=== PATIENT | female | born 1955 | race Caucasian/White ===

== ENCOUNTER → 2019-12-06 14:47 | Outpatient (CLI) | payer MEDICARE, SELFPAY ==
--- NOTE | ~2019-12-06 | MM_ITS ---
EXAMINATION: MM screening [facility] BI w nisreen HISTORY: Screening mammogram TECHNIQUE: Craniocaudal and mediolateral oblique 3-D tomosynthesis images were obtained and synthetic 2-D images were generated. CAD analysis was submitted and interpreted. COMPARISON: 11/10/2018, 11/10/2017, 11/02/2017, 11/11/2016, 10/06/2016, 10/01/2015 BREAST PARENCHYMAL COMPOSITION: The breasts are heterogeneously dense, which may obscure small masses . FINDINGS: Scattered benign-appearing calcifications are present. There is no evidence of suspicious m ass, calcification, or architectural distortion to suggest malignancy in either breast. There has bee n no suspicious interval change. IMPRESSION: 1. No mammographic evidence of malignancy. 2. Recommend routine screening mammography in one year. BI-RADS Category 2: Benign finding(s). Reviewed, dictated and finalized at location A.
== END ==
PROVIDERS: Visit Provider Obstetrics & Gynecology Gynecology
DX: Z12.31 Encounter for screening mammogram for malignant neoplasm of breast (principal)
CPT/HCPCS: 77063; 77067

== ENCOUNTER → 2020-12-14 12:35 | Outpatient (CLI) | payer MEDICARE, SELFPAY ==
--- NOTE | ~2020-12-14 | MM_ITS ---
EXAMINATION: MM screening [facility] BI w nisreen HISTORY: Screening TECHNIQUE: Craniocaudal and mediolateral oblique 3-D tomosynthesis images were obtained and synthetic 2-D images were generated. CAD analysis was submitted and interpreted. COMPARISON: Comparison to multiple prior studies sequentially, with oldest reviewed study dated 10/06. BREAST PARENCHYMAL COMPOSITION: The breasts are heterogenously dense, which may obscure small masses. FINDINGS: There is no evidence of suspicious mass, calcification, or architectural distortion to sugg est malignancy in either breast. There has been no suspicious interval change. IMPRESSION: 1. No mammographic evidence of malignancy. 2. Recommend routine screening mammography in one year. BI-RADS Category 1: Negative Reviewed, dictated and finalized at location A.
== END ==
PROVIDERS: PCP Family Medicine Sports Medicine; Visit Provider Obstetrics & Gynecology Gynecology
DX: Z12.31 Encounter for screening mammogram for malignant neoplasm of breast (principal)
CPT/HCPCS: 77063; 77067

== ENCOUNTER → 2022-02-12 12:17 | Outpatient (CLI) | payer MEDICARE, SELFPAY ==
--- NOTE | ~2022-02-12 | MM_ITS ---
EXAMINATION: MM screening [facility] BI w nisreen HISTORY: Screening mammogram TECHNIQUE: Craniocaudal and mediolateral oblique 3-D tomosynthesis images were obtained and synthetic 2-D images were generated. CAD analysis was submitted and interpreted. COMPARISON: 12/14/2020, 12/06/2019, 11/10/2018 BREAST PARENCHYMAL COMPOSITION: The breasts are extremely dense, which lowers the sensitivity of mamm ography. FINDINGS: Scattered benign-appearing calcifications are present. There is no suspicious mass, calcifi cation, or architectural distortion to suggest malignancy in either breast. There has been no suspici ous interval change. IMPRESSION: 1. No mammographic evidence of malignancy. 2. Recommend routine screening mammography in one year. BI-RADS Category 2: Benign finding(s). Reviewed, dictated and finalized at location A.
== END ==
PROVIDERS: PCP Family Medicine Sports Medicine; Visit Provider Obstetrics & Gynecology Gynecology
DX: Z12.31 Encounter for screening mammogram for malignant neoplasm of breast (principal)
CPT/HCPCS: 77063; 77067

== ENCOUNTER 2022-03-07 10:44 | Outpatient (CLI) | payer MEDICARE, SELFPAY ==
--- NOTE | ~2022-03-07 | MR_ITS ---
MR breast BI wo/w con 03/07/2022 12:06 CDT INDICATION: Extremely dense breasts. TECHNIQUE: MRI of the breasts perform using standard protocol pre-and post IV contrast with the follo wing sequences: Axial T2 STIR, axial T1, axial vibrant T1 with fat suppression precontrast and multip hasic postcontrast. COMPARISON: Mammogram dated 02/12/2022 FINDINGS: There are no abnormalities on the precontrast sequences. There is minimal background parenc hymal enhancement. There are small foci of nonmass-like enhancement in the right breast, largest in t he lower outer quadrant at 6:00, 4.9 cm from the nipple measuring 4 x 2 x 3 mm. No evidence of signal abnormalities in the axillary or internal mammary node distributions. LEFT BREAST: No signal abnormalities on precontrast sequences. There is minimal background parenchym al enhancement. There is a single foci of nonmass-like enhancement in the left breast measuring appro ximately 2 mm. No evidence of signal abnormalities in the axillary or internal mammary node distribut ions.] IMPRESSION: 1: Bilateral small foci of nonmass-like enhancement, largest in the lower outer quadrant of the right breast measuring 4 mm. These are likely benign. Recommend correlation with complete bilateral breast ultrasound. BI-RADS CATEGORY 0 - INCOMPLETE STUDY, NEED ADDITIONAL IMAGING EVALUATION. Reviewed, dictated and finalized at location A. IMPRESSION: 1: Bilateral small foci of nonmass-like enhancement, largest in the lower outer quadrant of the right breast measuring 4 mm. These are likely benign. Recommen d correlation with complete bilateral breast ultrasound. BI-RADS CATEGORY 0 - INCOMPLETE STUDY, NEED ADDITIONAL IMAGING EVALUATION.
== END 2022-03-07 10:45 | disposition home or self-care (01) ==
LOC: ANHIMG 10:46
PROVIDERS: PCP Family Medicine Sports Medicine; Visit Provider Obstetrics & Gynecology Gynecology
DX: R92.2 Inconclusive mammogram (principal)
CPT/HCPCS: 77049; A9577; C8908

== ENCOUNTER 2022-03-12 12:47 | Outpatient (CLI) | payer MEDICARE, SELFPAY ==
--- NOTE | ~2022-03-12 | US_ITS ---
US breast BI complete INDICATION: Ultrasound recommended on recent MRI examination. TECHNIQUE: Dedicated bilateral complete breast ultrasound including all 4 quadrants in the subareolar locations. COMPARISON: MRI dated 03/07/2022 and mammogram dated 02/12/2022 FINDINGS: The breasts are composed of normal heterogeneous echotexture without focal solid or cystic mass. There are mildly enlarged left axillary lymph nodes, likely reactive. No discrete mass identifi ed in either breast to correspond to the area of nonmass-like enhancement seen on MRI examination. IMPRESSION: 1: No sonographic evidence for malignancy in either breast. Mildly enlarged left axillary lymph nodes , likely reactive. Six-month follow-up MRI of the breasts recommended. BI-RADS CATEGORY 3-PROBABLY BENIGN FINDING Reviewed, dictated and finalized at location A. IMPRESSION: 1: No sonographic evidence for malignancy in either breast. Mildly enlarged lef t axillary lymph nodes, likely reactive. Six-month follow-up MRI of the breasts recommended. BI-RADS CATEGORY 3-PROBABLY BENIGN FINDING
== END 2022-03-12 12:48 | disposition home or self-care (01) ==
PROVIDERS: PCP Family Medicine Sports Medicine; Visit Provider Obstetrics & Gynecology Gynecology
DX: R92.8 Other abnormal and inconclusive findings on diagnostic imaging of breast (principal)
CPT/HCPCS: 76641

== ENCOUNTER 2022-09-09 09:37 | Outpatient (CLI) | payer MEDICARE, SELFPAY ==
--- NOTE | ~2022-09-09 | MR_ITS ---
EXAMINATION: MR breast BI wo/w con INDICATION: Six-month follow-up for probably benign bilateral breast findings TECHNIQUE: Axial VIBRANT pre and dynamic post contrast, Sagittal VIBRANT post contrast, Axial T2 STIR ASSET COMPARISON: 03/07/2022 CONTRAST: Multihance, 10 cc BREAST COMPOSITION: Heterogeneous fibroglandular tissue FINDINGS: RIGHT BREAST: There is minimal background parenchymal enhancement. There is a stable 6 mm mass in the posterior third of the lower right breast at the 6:00 location 5 cm from the nipple. There has been no suspicious interval change. Additional small foci of enhancement in the breast are also unchanged. LEFT BREAST: There is minimal background parenchymal enhancement. There are small foci of stable enha ncement in the left breast. No suspicious mass is identified. IMPRESSION: 1. Stable, probably benign right breast mass without mammographic or sonographic correlate. Follow-up MRI in six months is recommended. BI-RADS category 3, probably benign findings. Reviewed, dictated and finalized at location A. IMPRESSION: 1. Stable, probably benign right breast mass without mammographic or sonographi c correlate. Follow-up MRI in six months is recommended. BI-RADS category 3, probably benign findings.
== END 2022-09-09 09:38 | disposition home or self-care (01) ==
PROVIDERS: PCP Family Medicine Sports Medicine; Visit Provider Obstetrics & Gynecology Gynecology
DX: R92.8 Other abnormal and inconclusive findings on diagnostic imaging of breast (principal)
CPT/HCPCS: 77049; A9577; C8908

== ENCOUNTER 2023-03-09 09:32 | Outpatient (CLI) | payer MEDICARE, SELFPAY ==
--- NOTE | ~2023-03-09 | MR_ITS ---
MR breast BI wo/w con 03/10/2023 08:14 CDT INDICATION: Dense breasts. Previous foci of enhancement. TECHNIQUE: MRI of the breasts perform using standard protocol pre-and post IV contrast with the follo wing sequences: Axial T2 STIR, axial T1, axial vibrant T1 with fat suppression precontrast and multip hasic postcontrast. 10 cc MultiHance administered intravenously. COMPARISON: Comparison to multiple prior studies sequentially, with oldest reviewed study dated 12/14. FINDINGS: There are no abnormalities on the precontrast sequences. There is minimal background parenc hymal enhancement. No enhancing lesions following contrast administration. No areas of enhancement meeting threshold criteria on CAD analysis. No evidence of signal abnormalities in the axillary or i nternal mammary node distributions. LEFT BREAST: No signal abnormalities on precontrast sequences. There is minimal background parenchym al enhancement. There is a stable enhancing 6 mm Mass central aspect of the left breast with rapid washout enhancement. This is unchanged dating back to 03/07/2022 MRI allowing for differences of technique. No evidence of signal abnormalities in the a xillary or internal mammary node distributions.] IMPRESSION: 1: Right breast: Negative. No evidence of malignancy. BI-RADS category 1. Recommend annual mammo graphy follow-up. 2: Left breast: Stable 6 mm enhancing mass central aspect of the left breast. Follow-up diagnostic b ilateral mammogram and complete left breast ultrasound recommended. BI-RADS Category 3. BI-RADS CATEGORY 0 - INCOMPLETE STUDY, NEED ADDITIONAL IMAGING EVALUATION. Reviewed, dictated and finalized at location A. IMPRESSION: 1: Right breast: Negative. No evidence of malignancy. BI-RADS category 1. Recommend annual mammography follow-up. 2: Left breast: Stable 6 mm enhancing mass central aspect of the left breast. Follow-up diagnostic bilateral mammogram and complete left breast ultrasound re commended. BI-RADS Category 3. BI-RADS CATEGORY 0 - INCOMPLETE STUDY, NEED ADDITIONAL IMAGING EVALUATION.
== END 2023-03-09 09:33 | disposition home or self-care (01) ==
PROVIDERS: PCP Family Medicine Sports Medicine; Visit Provider Obstetrics & Gynecology Gynecology
DX: R92.8 Other abnormal and inconclusive findings on diagnostic imaging of breast (principal)
CPT/HCPCS: 77049; A9577; C8908

== ENCOUNTER → 2023-04-14 07:46 | Outpatient (CLI) | payer MEDICARE, SELFPAY ==
--- NOTE | ~2023-04-14 | MMUS_ITS ---
EXAMINATION: MM diagnostic [facility] BI w nisreen, US breast BI complete HISTORY: 6 mm enhancing central left breast mass reported on 03/09/2023 MRI breast examination TECHNIQUE: Full field and spot ML, MLO and CC 3-D tomosynthesis images of both breasts were performed and synthetic 2-D images were generated. CAD analysis was submitted and interpreted. High resolution complete bilateral breast ultrasound examination including all 4 quadrants and subareolar areas was performed. COMPARISON: 03/09/2023 MRI breast examination 09/09/2022 MRI breast examination 03/12/2020 through the lateral complete breast ultrasound examination 03/07/2022 MRI breast examination 02/12/2022 bilateral screening mammogram 12/14/2020 bilateral screening mammogram BREAST PARENCHYMAL COMPOSITION: The breasts are extremely dense, which lowers the sensitivity of mamm ography. FINDINGS: MAMMOGRAPHIC FINDINGS: No suspicious mass, architectural distortion, malignant calcification, skin thickening or retraction or significant new or developing density of either breast is evident. ULTRASOUND: Right breast: 10:00 8 cm from nipple: Benign-appearing 2.5 x 3.7 x 3.7 mm lymph node with through transmission post erior enhancement, central fatty hilum. No suspicious mass or shadowing of the right breast is detected. No other significant abnormalities n oted. Left breast: No suspicious mass or shadowing of the right breast is detected. No other significant abnormality is noted. IMPRESSION: 1. Benign finding 2. Routine annual mammographic screening is recommended BI-RADS Category 2: Benign finding(s). Reviewed, dictated and finalized at location A. ONS ADVISOR IMPRESSION: 1. Benign finding 2. Routine annual mammographic screening is recommended BI-RADS Category 2: Benign finding(s).
== END ==
PROVIDERS: PCP Family Medicine Sports Medicine; Referring Provider Advanced Practice Midwife; Visit Provider Obstetrics & Gynecology Gynecology
DX: R92.8 Other abnormal and inconclusive findings on diagnostic imaging of breast (principal)
CPT/HCPCS: 76641; 77062; 77066; G0279

== ENCOUNTER 2024-04-19 08:16 | Outpatient (CLI) | payer MEDICARE, SELFPAY ==
--- NOTE | ~2024-04-19 | MM_ITS ---
EXAMINATION: MM screening [facility] BI w nisreen HISTORY: Screening TECHNIQUE: Craniocaudal and mediolateral oblique 3-D tomosynthesis images were obtained and synthetic 2-D images were generated. CAD analysis was submitted and interpreted. COMPARISON: Comparison to multiple prior studies sequentially, with oldest reviewed study dated 11/10. BREAST PARENCHYMAL COMPOSITION: Dense: The breasts are heterogeneously dense, which may obscure small masses FINDINGS: There is no evidence of suspicious mass, calcification, or architectural distortion to sugg est malignancy in either breast. There has been no suspicious interval change. IMPRESSION: 1. No mammographic evidence of malignancy. 2. Recommend routine screening mammography in one year. BI-RADS Category 1: Negative Reviewed, dictated and finalized at location B. [employer]IM[employer]UNTER
== END 2024-04-19 08:17 | disposition home or self-care (01) ==
LOC: CHSIMG 08:18
PROVIDERS: PCP Family Medicine Sports Medicine; Visit Provider Obstetrics & Gynecology Gynecology
DX: Z12.31 Encounter for screening mammogram for malignant neoplasm of breast (principal)
CPT/HCPCS: 77063; 77067

== ENCOUNTER 2025-04-24 08:16 | Outpatient (CLI) | payer MEDICARE, SELFPAY ==
--- NOTE | ~2025-04-24 | MM_ITS ---
EXAMINATION: MM screening nita BI w nisreen HISTORY: Screening TECHNIQUE: Craniocaudal and mediolateral oblique 3-D tomosynthesis images were obtained and synthetic 2-D images were generated. CAD analysis was submitted and interpreted. COMPARISON: Comparison to multiple prior studies sequentially, with oldest reviewed study dated 11/10/2018. BREAST PARENCHYMAL COMPOSITION: Dense: The breasts are heterogeneously dense, which may obscure small masses FINDINGS: There is no evidence of suspicious mass, calcification, or architectural distortion to suggest malignancy in either breast. There has been no suspicious interval change. IMPRESSION: 1. No mammographic evidence of malignancy. 2. Recommend routine screening mammography in one year. BI-RADS Category 1: Negative Reviewed, dictated and finalized at location I. BUILDER HELPER
--- OUTSIDE RECORDS SUMMARY | 2025-04-24 08:31 | XMS_ITS | Encounter Summary ---
Author Organization [facility] Healthcare Address [address] [place] [address] Care Team Providers Care Workforce Management Consultant Name Role Phone Bernarda Garcia DO Primary Care Provider [phone] Encounter Details Date Type Department Care Team (Late st Contact Info) Description 06/23/2019 Documentation [facility] [address] [place] [id number] Rosana Guo, ARIE Social History Tobacco Use Types Packs/Day Years Used Date Smoking Tobacco: Never Smokeless Tobacco: Never Alcohol Use Standard Drinks/Week Comments Not Currently 0 (1 standard drink = 0.6 oz pur e alcohol) Comments No Sex and Gender Information Value Date Recorded Sex Assigned at Not on file Legal Sex Female 11:19 AM [facility] PT Gender Identity Female 11/27/2020 5:05 PM CDT Sexual Orientation Straight 09/02/2020 10 :53 AM CDT Occupation Industry Job Start Date Job End Date retired Not on file Not on file Not on file documented as of this encounter Functional Status * Question Answer Date of Assessment Author BP Location Left arm 06/24/2019 10:35 AM [facility] PT Ramiro Santa roea, PT BP Method Automatic 06/24/2019 10:35 AM [facility] PT Luana Neal, PT MAP (mmHg) 88 06/24/2019 12:00 PM Bertha Atkinson RN * Wong Fall Risk Question Answer Date of Assessment Author History of Falling 0 06/24/2019 7:38 AM Bertha Leonard RN Secondary Diagnosis 15 06/24/2019 7:38 AM Bertha Haines RN Ambulatory Aids 15 06/24/2019 7:38 AM Bertha Baird RN Intravenous Therapy/Heparin/ Saline Lock 20 06/24/2019 7:38 AM Bertha Leonard RN Gait/Transferring 10 06/24/2019 7:38 AM Bertha Leonard RN Mental Status 0 06/24/2019 7:38 AM Bertha Atkinson RN * Daniel Scale Question Answer Date of Assessment Author Sensory Perceptions 3 06/24/2019 7:38 AM Bertha Haines RN Moisture 4 06/24/2019 7:38 AM Bertha Leonard RN Activity 3 06/24/2019 7:38 AM Bertha Leonard RN Mobility 3 06/24/2019 7:38 AM Bertha Leonard RN Nutrition 3 06/24/2019 7:38 AM Bertha Leonard RN Friction and Shear 2 06/24/2019 7:38 AM Bertha Leonard RN Daniel Scale Score 18 06/24/2019 7:38 AM Bertha Leonard RN * Fall Risk Interventions Question Answer Date of Assessment Author All Low Fall Interventions Applied Yes 06/24/2019 7:38 AM Bertha Leonard RN All Moderate Fall Interventions Applied Yes 06/24/2019 7:38 AM Bertha Leonard RN All Moderate Fall Risk Interventions EXCEPT: Fall risk armband 06/23/2019 8:00 AM Tasha Levy RN All High Fall Risk Interventions Applied Yes 06/24/2019 7:38 AM Bertha Leonard RN Additional Interventions Applied Bed/chair alarm;Bedside commode;Over-bed table on non-exit side;Exit bed on strong/preferred side;Video monitoring 06/24/2019 7:38 AM Bertha Leonard RN * Question Answer Date of Assessment Author PT Functional Mobility Gait belt donned for OOB mobility 06/24/2019 9:49 AM Luana Hook PT * B.M.A.T. - Bedside Mobility Assessment Tool for Nurses Question Answer Date of Assessment Author Is patient able to participate in the BMAT? Yes 06/24/2019 7:38 AM Bertha Leonard RN BMAT Level Level 3 - Yellow 06/24/2019 7:38 AM Bertha Mayer RN Level 3 Equipment Use assistive device such as cane/walker 06/24/2019 7:38 AM Bertha Leonard RN * Integumentary Question Answer Date of Assessment Author Skin Color Appropriate for ethnicity 06/24/2019 7:38 AM Bertha Leonard RN Skin Condition/Temp Warm;Dry 06/24/2019 7 :38 AM Bertha Leonard RN Skin Integrity Puncture 06/24/2019 7:38 AM Bertha Leonard RN Skin Turgor Non-tenting 06/24/2019 7:38 AM Bertha Leonard RN Integumentary Additional Assessments Yes-Daniel 06/24/2019 7:38 AM Bertha Leonard RN Integumentary (WDL) X 06/24/2019 7 :38 AM Bertha Leonard RN Skin Location Right Wrist 06/24/2019 7:38 AM Bertha Leonard RN * Question Answer Date of Assessment Author BP Location Left arm 06/24/2019 10:35 AM Luana Guevara PT BP Method Automatic 06/24/2019 10:35 AM [facility] PT Luana Neal PT * Question Answer Date of Assessment Author Affect Appropriate 06/23/2019 8:00 PM Marge Ham RN Mood Content 06/23/2019 8:00 PM Marge Ham RN * Question Answer Date of Assessment Author Percent Snack Eaten (%) 100 06/24/2019 5:27 A M Marge Madrid RN * Question Answer Date of Assessment Author Bed In Lowest Position Yes 06/24/2019 9:30 AM Bertha Leonard RN Bed Wheels Locked Yes 06/24/2019 9:30 AM Bertha Leonard RN * Fall Risk Interventions Question Answer Date of Assessment Author All Low Fall Interventions Applied Yes 06/24/2019 7:38 AM Bertha Leonard RN All Moderate Fall Interventions Applied Yes 06/24/2019 7:38 AM Bertha Leonard RN All Moderate Fall Risk Interventions EXCEPT: Fall risk armband 06/23/2019 8:00 AM Tasha Levy RN All High Fall Risk Interventions Applied Yes 06/24/2019 7:38 AM Bertha Leonard RN Additional Interventions Applied Bed/chair alarm;Bedside commode;Over-bed table on non-exit side;Exit bed on strong/preferred side;Video monitoring 06/24/2019 7:38 AM Bertha Leonard RN * ADL Screening Question Answer Date of Assessment Author Patient's Vision Adequate to Safely Complete Daily Activities No 06/24/2019 12:00 PM Bertha Leonard RN Patient's Judgement Adequate to Safely Complete Daily Activities Yes 06/24/2019 12:00 PM Bertha Leonard RN Patient's Memory Adequate to Safely Complete Daily Activities Yes 06/24/2019 12:00 PM Bertha Leonard RN Patient Able to Express Needs/Desires Yes 06/24/2019 12:00 PM Bertha Leonard RN Dressing Independent 06/24/2019 12:00 PM Bertha Atkinson RN Grooming Independent 06/24/2019 12:00 PM Bertha Atkinson RN Feeding Independent 06/24/2019 12:00 PM Bertha Atkinson RN Bathing Needs assistance 06/24/2019 12:00 PM Bertha Leonard RN Toileting Independent 06/24/2019 12:00 PM Bertha Atkinson RN In/Out Bed Independent 06/24/2019 12:00 PM Bertha Atkinson RN Walks in Home Independent 06/24/2019 12:00 PM Bertha Myrick RN Weakness of Legs Both 06/24/2019 12:00 PM Bertha Leonard RN Weakness of Arms/Hands None 06/24/2019 12:00 P M Bertha Leonard RN Hearing - Right Ear Functional 06/24/2019 12:00 PM C Bertha Easton RN Hearing - Left Ear Functional 06/24/2019 12:00 PM CS T Bertha Quiroga RN Dominant hand? Right 06/24/2019 12:00 PM HOME HEALTH TRAVEL PT Bertha Chand RN Decline in ADLs in last 2 weeks? No 06/24/2019 12:00 PM Bertha Leonard RN * Therapy Consults Question Answer Date of Assessment Author PT Evaluation Needed 2 06/24/2019 12:00 PM Bertha Leonard RN OT Evaluation Needed 2 06/24/2019 12:00 PM Bertha Leonard RN PLUMBER SUPERVISOR Evaluation Needed 2 06/24/2019 12:00 PM Bertha Leonard RN * Assistive Devices Question Answer Date of Assessment Author Assistive Devices/DME Eyeglasses;Walker 06/24/2019 12: 00 PM Bertha Leonard RN documented as of this encounter Mental Status * Question Answer Entry Date Author Level of Consciousness Alert;Awake 06/24/2019 7:38 AM Bertha Leonard RN * Question Answer Entry Date Author Orientation Oriented X4 (person, place, time, situation) 06/24/2019 9:49 AM [facility] TRA[facility]EL PT Luana Alva, PT * Question Answer Entry Date Author Neuro (WDL) X 06/24/2019 7:38 AM Bertha Leonard RN Other Neuro Symptoms Headache 06/23/2019 8:00 PM Marge Pollack RN * Question Answer Entry Date Author Neuro (WDL) WDL 06/23/2019 3:00 PM HOME HEALTH TRAVEL PT Bernadette Rodríguez, ARIE documented in this encounter Plan of Treatment Not on file documented as of this encounter Visit Diagnoses Not on filedocumented in this encounter Care Teams Workforce Management Consultant Relationship Specialty Start Date End Date Bernarda Garcia DO [address] [place] [address] [place] [address] PCP - General 09/15/16 documented as of this encounter
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
== END 2025-04-24 08:17 | disposition home or self-care (01) ==
LOC: CHSIMG 08:19
PROVIDERS: PCP Family Medicine Sports Medicine; Visit Provider Obstetrics & Gynecology Gynecology
DX: Z12.31 Encounter for screening mammogram for malignant neoplasm of breast (principal)
CPT/HCPCS: 77063; 77067